=== PATIENT | female | born 1950 | race Caucasian/White ===

== ENCOUNTER 2022-12-19 14:35 | Outpatient (CLI) | payer MEDICARE, SELFPAY ==
--- NOTE | ~2022-12-19 | US_ITS ---
EXAMINATION: US art doppler w ashleigh SILVA BI DATE: 12/19/2022 15:26 INDICATION: Peripheral vascular disease TECHNIQUE: Segmental pressures and plethysmographic and Doppler waveforms of the brachial and lower e xtremity arteries were obtained. COMPARISON: None. FINDINGS: Right and left brachial artery pressures of 126 mm Hg and 117 mm Hg, respectively, are concordant (no rmal difference <= 30 mmHg). The right high thigh pressure index is 1.23 (normal > 1.2). The left hig h thigh pressure index was unable to be obtained due to inability to occlude the vessels at the high left thigh. The right ankle-brachial index (YANIQUE) is 0.60 (normal >= 0.9-1). The right great toe-brachial index (T BI) is 0.19 (normal >= 0.6-0.8). The right lower extremity segmental pressure gradients are markedly increased between the right [id number] popliteal artery and the arteries at the right ankle (norm al gradients <= 20-30 mmHg between adjacent levels on the same leg or the same levels on the two legs ). Arterial waveforms are biphasic with brisk systolic upstrokes at the right common femoral and supe rficial femoral arteries with borderline delayed upstrokes at the right popliteal artery and with del ayed upstrokes and broadened systolic peaks at the right posterior tibial and dorsalis pedis arteries . The left YANIQUE is 0.96. The left TBI is 0.58. The left lower extremity segmental pressure gradients are significantly increased between the left posterior tibial artery and both the left [id number] po pliteal artery and dorsalis pedis artery. There is also increased gradient between the left above and [id number] popliteal arteries. Arterial waveforms are biphasic with borderline delayed upstrokes at the left superficial, popliteal and posterior tibial arteries and with brisk systolic upstrokes a t the left common femoral and dorsalis pedis arteries. IMPRESSION: 1. Arterial occlusive disease to bilateral lower limbs with moderately decreased right YANIQUE and severe ly decreased right TBI and with borderline left YANIQUE and mildly decreased left TBI. Reviewed, dictated and finalized at location A. IMPRESSION: 1. Arterial occlusive disease to bilateral lower limbs with moderately decrease d right YANIQUE and severely decreased right TBI and with borderline left YANIQUE and m ildly decreased left TBI.
== END 2022-12-19 14:36 | disposition home or self-care (01) ==
PROVIDERS: PCP Family Medicine; Visit Provider Orthopaedic Surgery
DX: I73.9 Peripheral vascular disease, unspecified (principal); R09.89 Other specified symptoms and signs involving the circulatory and respiratory systems; M79.606 Pain in leg, unspecified
CPT/HCPCS: 93923